=== PATIENT | female | born 1945 | race Caucasian/White ===

== ENCOUNTER 2020-11-25 06:59 | Outpatient (CLI) | payer MEDICARE, OTHER | END 2020-11-25 07:00 | disposition home or self-care (01) | LOC: BICMRI 06:59 | PROVIDERS: ATTEND Family Medicine | DX: M54.5 Low back pain (principal); G44.1 Vascular headache, not elsewhere classified; M47.816 Spondylosis without myelopathy or radiculopathy, lumbar region | CPT/HCPCS: 70551; 72148 ==

== ENCOUNTER 2021-05-16 10:08 | Outpatient (CLI) | payer MEDICARE, OTHER | END 2021-05-16 10:09 | disposition home or self-care (01) | LOC: BICRAD 10:08 | PROVIDERS: ATTEND Family Medicine | DX: J20.9 Acute bronchitis, unspecified (principal); R91.8 Other nonspecific abnormal finding of lung field | CPT/HCPCS: 71046 ==

== ENCOUNTER 2022-10-02 08:15 | Outpatient (CLI) | payer MEDICARE, OTHER | END 2022-10-02 08:16 | disposition home or self-care (01) | LOC: MRI 08:15 | PROVIDERS: ATTEND Anesthesiology Pain Medicine | DX: M47.26 Other spondylosis with radiculopathy, lumbar region (principal); M47.815 Spondylosis without myelopathy or radiculopathy, thoracolumbar region; M51.35 Other intervertebral disc degeneration, thoracolumbar region; M25.78 Osteophyte, vertebrae; M51.17 Intervertebral disc disorders with radiculopathy, lumbosacral region; M51.16 Intervertebral disc disorders with radiculopathy, lumbar region; M48.062 Spinal stenosis, lumbar region with neurogenic claudication; M47.817 Spondylosis without myelopathy or radiculopathy, lumbosacral region; M51.37 Other intervertebral disc degeneration, lumbosacral region; M48.07 Spinal stenosis, lumbosacral region | CPT/HCPCS: 72148 ==

== ENCOUNTER 2024-02-21 08:39 | Outpatient (CLI) | payer MEDICARE | END 2024-02-21 08:40 | disposition home or self-care (01) | LOC: BICRAD 08:39 | PROVIDERS: ATTEND Family Medicine | DX: J18.9 Pneumonia, unspecified organism (principal) | CPT/HCPCS: 71046 ==

== ENCOUNTER 2024-04-08 07:12 | Outpatient (CLI) | payer MEDICARE | END 2024-04-08 07:13 | disposition home or self-care (01) | LOC: BICRAD 07:12 | PROVIDERS: ATTEND Family Medicine | DX: S22.32XA Fracture of one rib, left side, initial encounter for closed fracture (principal); M25.512 Pain in left shoulder; M19.012 Primary osteoarthritis, left shoulder ==

== ENCOUNTER 2024-04-30 09:05 | Outpatient (CLI) | payer MEDICARE | END 2024-04-30 09:06 | disposition home or self-care (01) | LOC: MRI 09:05 | PROVIDERS: ATTEND Family Medicine | DX: M51.16 Intervertebral disc disorders with radiculopathy, lumbar region (principal); M47.25 Other spondylosis with radiculopathy, thoracolumbar region; M47.26 Other spondylosis with radiculopathy, lumbar region; M47.27 Other spondylosis with radiculopathy, lumbosacral region; M48.061 Spinal stenosis, lumbar region without neurogenic claudication; Z98.890 Other specified postprocedural states | CPT/HCPCS: 72148 ==

== ENCOUNTER 2024-06-13 09:24 | Outpatient (CLI) | payer MEDICARE ==
[2024-06-13 10:37] LABS: #Basophils 0.05 10x3/uL (0.0-0.2); %Basophils 0.8 % (0.0-1.0); %Eosinophils 5.5 % (0.0-10.0); %Lymphocytes 29.6 % (21.0-51.0); %Monocytes 5.5 % (0.0-10.0); %Neutrophils 58.4 % (42.0-75.0); Hematocrit 42.2 % (36.0-47.0); Hemoglobin 13.1 g/dL (12.0-16.0); Mean Corpuscular Hemoglobin 25.7 pg (27.0-31.0); Mean Corpuscular Volume 82.9 fL (78.0-98.0); Mean Platelet Volume 10.3 fL (7.4-10.4); Platelet Count 200 10x3/uL (130-400); RBC Distribution Width 14.7 % (11.5-14.5); Red Blood Cell (RBC) Count 5.09 mill/uL (4.20-5.40)
[2024-06-13 10:54] LABS: PTT 31.6 sec (22.9-36.1); Prothrombin Time 12.7 sec (12.0-14.7)
[2024-06-13 11:00] LABS: Anion Gap 12 mmol/L (10-20); BUN (Urea Nitrogen) 14 mg/dL (9.8-20.1); Calc. Creatinine Clearance 0 mL/min (70-130); Calcium 8.8 mg/dL (7.8-10.44); Carbon Dioxide 26 mmol/L (23-31); Chloride 108 mmol/L (98-107); Estimated GFR 56; Glucose 112 mg/dL (83-110); Potassium 4.6 mmol/L (3.5-5.1); Sodium 141 mmol/L (136-145)
== END 2024-06-13 09:25 | disposition home or self-care (01) ==
LOC: LABBT 09:24
PROVIDERS: ATTEND Surgery
DX: Z01.818 Encounter for other preprocedural examination (principal); M51.16 Intervertebral disc disorders with radiculopathy, lumbar region
CPT/HCPCS: 80048; 85025; 85610; 85730; 93005; 93010